=== PATIENT | female | born 1975 | race Caucasian/White ===

== ENCOUNTER → 2018-11-14 16:15 | Outpatient (CLI) | payer OTHER, SELFPAY | PROVIDERS: Referring Provider Obstetrics & Gynecology; Visit Provider Obstetrics & Gynecology | DX: N92.0 Excessive and frequent menstruation with regular cycle (principal) ==

== ENCOUNTER → 2018-11-15 09:07 | Outpatient (CLI) | payer OTHER, SELFPAY ==
--- NOTE | 2018-11-14 16:15 | EMB_PTH ---
PATIENT: COREY RODRIGUEZ LOC: [facility] U#:[id number] AGE/SX: 49/F ROOM: RE11/15/[address]: Dr. Kalen Wise MD : 1975 BED: DIS: SPEC #: [id number] RECD: 11/14/18 17:00 STATUS: NOLBERTO STEFAN #: [id number] KELLY: 11/14/18 16:[address]: Kalen Wise DEPT: SURGICAL PATHOLOGY RECD BY: Rodrigo Navarro Tissues: A - Endometrium, NOS B - Endocervical Procedures: Surgery Specimen Level IV HEADER OPERATION: Endometrial biopsy, polypectomy PRE-OP DIAGNOSIS: Menorrhagia TISSUE SUBMITTED: A - Endometrium, B - Endocervical polyp MICROSCOPIC DIAGNOSIS A. Endometrial biopsy: Proliferative endometrium. B. Endocervical polyp, polypectomy: Inflamed benign endocervical polyp. SJ:josette 11/16/18 MICROSCOPIC DESCRIPTION Slides are reviewed. GROSS DESCRIPTION A - Received in fixative is one container labeled with the patient's name and designated EM biopsy. The specimen consists of multiple fragments of pink hemorrhagic soft tissue that in aggregate measure 1.5 x 1.5 x 0.2 cm. The specimen is totally submitted in one cassette. B - Received in fixative is one container labeled with the patient's name and designated polyp. The specimen consists of multiple fragments of mckinney mucoid tissue that in aggregate measure 1 x 0.5 x 0.1 cm. The specimen is totally submitted in one cassette. / SJ:josette 11/15/18 TC:5 CPT: 02615 x2
== END ==
PROVIDERS: Referring Provider Obstetrics & Gynecology; Visit Provider Obstetrics & Gynecology
DX: N84.1 Polyp of cervix uteri (principal)
CPT/HCPCS: 88305

== ENCOUNTER 2018-12-12 09:58 | Day surgery (SDC) | payer OTHER, SELFPAY ==
[2018-12-05 16:38] LABS: Hematocrit 37.7 % (37-47); Hemoglobin 12.3 g/dL (12.0-15.0); Mean Corp Hgb Conc 32.6 g/dL (32-36); Mean Corpuscular Hgb 29.1 pg (27.0-32.0); Mean Corpuscular Volume 89.3 fL (81-99); Platelet Count 328 K/mm3 (150-450); RBC Distribution Width SD 45.5 fl (35.1-43.9); Red Blood Count 4.22 M/mm3 (4.2-5.4); White Blood Count 9.2 K/mm3 (4.4-11.0)
[2018-12-05 16:49] LABS: Partial Thromboplast Time 30.2 Seconds (24.1-36.2); Prothrombin Time (Protime)PT. 12.6 SECONDS (11.7-14.9)
[2018-12-05 17:01] LABS: Hemoglobin A1c 5.5 % (4.2-6.3)
[2018-12-05 17:09] LABS: Internal QC Validated? YES +Cl - CLEAR BKGD; Pregnancy, Serum, hCG Quali. NEGATIVE Negative
[2018-12-05 19:34] LABS: Anion Gap 9 (5-15); BUN 11 mg/dL (7-18); BUN/Creat Ratio 16.1 RATIO (10-20); Calcium,Total 9.1 mg/dL (8.5-10.1); Chloride 108 mmol/L (98-107); Creatinine, Serum 0.68 mg/dL (0.55-1.02); EST Glomerular Filtration Rate 100 mL/min (>60); Est Glom Filt Rate - Afr Amer 121 mL/min (>60); Glucose 93 mg/dL (74-106); Potassium 3.8 mmol/L (3.5-5.1); Sodium Level 144 mmol/L (136-145); Thyroid Stim Hormone (TSH) 0.58 uIU/mL (0.358-3.74)
--- NOTE | 2018-12-11 16:08 | HP.PCM_ITS ---
History and Physical Date of Admission: 12/12/18 Surgical History and Physical Delphine Farmer, a 43 year old female 1 0 0 0 1, presents for HTA, L/S Bilateral Salpingectomy H/S and D and C on December 12, 2018 at 8:30. -- Irregular menses; Menorrhagia; Desires Permanaent Sterilization -- Delphine presents here today for irregular menses , reports spotting some months with no bleeding then flood gate the next month. Uses no control. Heavy menses which began years ago. Delphine claims it started gradually It is located in the vagina. Delphine characterizes the quality extremely heavy bleeding with menses. Additional comments are: U/S in office essentially normal. MEDICATIONS HISTORY: Patient is also takin. levothyroxine 100 mcg tablet, daily 2. metformin 500 mg tablet, daily 3. omeprazole 10 mg capsule,delayed release, as needed 4. Vitamin D2 50,000 unit capsule, weekly ALLERGIES: NKDA Infections - Chicken pox Illnesses - Prediabetic, Emily Thyroiditis Disease Accidents - None Hospitalizations - Childbirth and surgery Review of Systems: GENERAL - Denies fever, or chills SKIN - Denies skin changes EYES - Denies visual changes EARS - Denies difficulty hearing NOSE - Denies nasal congestion or bleeding MOUTH - Denies sore throat or difficulty swallowing NECK - Denies pain or swelling RESPIRATORY - Denies shortness of breath or wheezing CARDIOVASCULAR - Denies palpitations or chest pain GASTROINTESTINAL - Denies nausea, vomiting, diarrhea, constipation GENITOURINARY - Denies dysuria, frequency of urination, incontinence of urine MUSCULOSKELETAL - Denies joint or muscle pain NEUROLOGICAL - Denies localized numbness or weakness PSYCHIATRIC - Denies depression or anxiety ENDOCRINE - Denies heat or cold intolerance, weight loss or gain HEMATO-IMMUNOLOGIC - Denies excessive bleeding with cuts SOCIAL HISTORY: Alcohol Use - RARELY Smoking - used to smoke but quit Diet - balanced Diet and low fat Lifestyle - high stress lifestyle Exercise - regular Seat Belt Use - always 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 Father: DM I and Heart Disease. MENSTRUAL HISTORY: LMP Known?- Definite Amount/Duration - 3-4 DAYS, Regularity - heavy and Regular, Frequency - every 23 days days, LMP - 11/29/18, Age Onset Menarche - 13 PAST PREGNANCIES: Total Pregnancies - 1; Full Term Pregnancies - 1; Premature - 0; Abortions, Induced - 0; Abortions, Spontaneous - 0; Ectopics - 0; Multiple Births - 0; Living Children - 1 SURGICAL HISTORY: 1. 03/17/1984 T and A PHYSICAL EXAM BP- 120/86 Sitting, Right arm, large cuff Weight- 239.65627 lbs Height- 66 inch BMI:38.66 CONSTITUTIONAL - NAD, well nourished, and well developed SKIN - No rash, lesions, or ulcers HEENT - Normocephalic, PERRLA, EOMI NECK - no nodes, no nuchal rigidity and thyroid normal size and texture LYMPH NODES - Palpation of lymph nodes in neck and groins within normal limits LUNGS - CTA x2 without wheezes, crackles or rales CARDIAC - Regular rate and rhythm without rubs, murmurs, or gallops ABDOMEN - Without hepatosplenomegaly, distention, masses, rebound, or guarding; normal bowel sounds, no hernias EXTREMITIES - No edema or calf tenderness NEUROLOGICAL - Cranial nerves II-XII grossly intact PSYCHIATRIC - A and O to time, place, person, mood and affect External Genital Vagina - non-tender without lesions Urethra/Urethral Meatus - non-tender Bladder - non-tender Vagina - vaginal conn are pink and moist without loss of rugae and no evidence of atropy Cervix - without cervical motion tenderness and has normal size and features without evident lesions and 0.25 cm EC polyp present and removed; cervix high in vagina which would make RAVH ok but LAVH very difficult Uterus - multiparous size 6 cm & wt 75-125 g Adnexa - clear without masses or tenderness ASSESSMENT/PLAN: 1. Menorrhagia, Desires Permanent Sterilization Await EMBx and polyp pathology. Discussed normal u/s today. Discussed options for treatment including OCPs. IUD, or proceeding with endometrial ablation. Desires we proceed with HTA, L/S Bilateral Salpingectomy H/S and D and C and all questions answered. had vasectomy.
[2018-12-12] VITALS (7 sets, daily range): BP systolic 100–117; BP diastolic 53–67; PULSE 64–72; RESP 16–18; TEMP 35.9–36.8; O2SAT 96–100; BMI 38.7
[2018-12-12 10:51] LABS: Internal QC Validated? YES +Cl - CLEAR BKGD; Pregnancy, Urine Negative Negative
[2018-12-12] MEDS: Lactated Ringers 1,000 ML 100 ML IV ×2 (11:06→14:09)
--- NOTE | 2018-12-12 11:35 | FALS_PTH ---
PATIENT: COREY RODRIGUEZ LOC: [facility] – [place] U#:[id number] AGE/SX: 43/F ROOM: RE12/12/[address]: Dr. Kalen Wise MD : 1975 BED: DIS: 12/12/2018 SPEC #: [id number] RECD: 12/12/18 13:57 STATUS: NOLBERTO REQ #: [id number] KELLY: 12/12/18 11:[address]: Kalen Wise DEPT: SURGICAL PATHOLOGY RECD BY: Rodrigo Navarro ENTERED: 12/12/18 14:09 SP TYPE: FALL TUBES OTHR DR: Gloria Gould PA-C Tissues: A - Fallopian tube B - Endometrium, NOS Procedures: Surgery Specimen Level II Surgery Specimen Level IV HEADER OPERATION: Hysteroscopy, hydroablation, D & C, laparoscopic salpingectomy PRE-OP DIAGNOSIS: Menorrhagia, desires permanent sterilization TISSUE SUBMITTED: A - Bilateral fallopian tubes, B - Endometrial curettings MICROSCOPIC DIAGNOSIS A. Bilateral fallopian tubes: Bilateral fallopian tubes including fimbrial ends, no pathologic diagnosis. A minute paratubal cyst. B. Endometrial curettings: Proliferative endometrium. SJ:josette 12/13/18 COMMENT Please make reference to previous specimen ([id number]) endometrial biopsy with diagnosis of proliferative endometrium and endocervical polyp, polypectomy with diagnosis of inflamed benign endocervical polyp. MICROSCOPIC DESCRIPTION Slides are reviewed. GROSS DESCRIPTION A - Received is one container labeled with the patient's name and designated bilateral fallopian tubes. The specimen consists of bilateral fallopian tubes including fimbrial ends measuring 5.5 cm in length and 0.5 cm in diameter and 4 cm in length and 0.5 cm in diameter. Sections do not reveal any mass lesion. The fallopian tubes are not identified as right or left. Sections reveal unremarkable cut surfaces. Also present in the container is a detached piece of soft tissue measuring 0.5 cm in greatest dimension. Ur Coordinator sections are submitted in two cassettes with each cassette containing one fallopian tube. Detached piece of tissue is present in cassette 2. B - Received in fixative is one container labeled with the patient's name and designated endometrial curettings. The specimen consists of multiple irregular fragments of pink-red soft tissue that in aggregate measure 5 x 3 x 0.3 cm. The entire specimen is submitted in two cassettes. / SJ:rg 12/12/18 TC:5 CPT: 92551, 51965 x2
--- NOTE | 2018-12-12 11:43 | PCM.OPRPT ---
Report of Operation Date of Procedure: 12/12/18 Pre-Operative Diagnosis: Menorrhagia, Desires Sterilization Post-Operative Diagnosis: Menorrhagia, Desires Sterilization Surgery/Procedure Performed:: Diagnostic Hysteroscopy, D&C, Hydrothermal Endometrial Ablation, Laparoscopic Bilateral Salpingectomy Description of Surgical Findings:: 8 cm uterus with normal-appearing fallopian tubes and ovaries. 8 cm endometrial cavity without polyps or fibroids present. cement block maker: Cricket Conway Type of Anesthesia:: General - Endotracheal Anesthesiologist: Sidra Morrison Specimen's removed: Endometrial curettings and bilateral fallopian tubes Estimated Blood Loss (mL): Minimal Fluids Replaced: Crystalloid Description of Procedure: Surgeon: Kalen Wise MD, FACOG Indication: This is a 43 year old patient who has been having problems with extremely heavy menses. She also desires permanent sterilization. Conservative measures have not been helpful. Endometrial sampling was benign and pelvic ultrasound showed that ablation may be helpful. Pt has been counseled regarding the risks, benefits and alternatives of this procedure and all questions answered. She understands that only about half of patients will have amenorrhea after this procedure. She also understands the permanent nature of her tubal as well as the failure rate of 1-2%. All questions were answered we consider the patient well-informed. Procedure: Patient taken to the operating room where after induction of general anesthesia the patient was prepped and draped in the usual sterile fashion. Bladder was drained of urine with a catheter. Anterior cervix grasped and a Conn cannula was placed. Attention was turned toward the laparoscopic portion of the procedure. Approximately 20 cc of half percent ropivacaine was injected subumbilically suprapubically and midway between. A 5 mm bladeless trocar was placed subumbilically and intraperitoneal placement confirmed. After CO2 insufflation was complete, a 5 mm bladeless trocar was introduced suprapubically. The above findings were noted. A 5 mm bladeless port was then placed midway between these 2 ports for tubal manipulation. Each fallopian tube was identified to its fimbriated end and an Enseal device was used to divide the mesosalpinx to the level of the uterus on each side. Hemostasis was noted. The peritoneal cavity and upper abdomen were examined and noted to be normal. Photographs were taken. Laparoscopic instruments with as much CO2 gas as possible were removed and incisions were closed with interrupted 4-0 Monocryl suture. Steri-Strips placed across the incision. Attention was turned toward the vaginal portion of the procedure. Cervix was dilated to about 17 Portuguese size. Hysteroscopic hydrothermal ablation (HTA) unit was place in the cervix and the above findings were noted. HTA unit was removed and the uterus was gently curretted removing all contents. An HTA ablation cycle was then carried out at about 90 degrees Centigrade for 10 minutes with virtually no fluid loss during the procedure. After an appropriate cool down the HTA unit was removed with minimal bleeding noted. Patient tolerated procedure well was taken to recovery room in satisfactory condition and sponge instrument and needle counts were all reportedly correct. Estimated blood loss for the case was minimal. Specimens to pathology were endometrial curettings and bilateral fallopian tubes. Grafts/Implants Used: None - Complications None - Admit VTE Documentation VTE Present on Admission: Yes VTE Mechan Device Prophylaxis: SCD's
--- NOTE | 2018-12-12 11:46 | DCINST_ITS ---
Discharge Diet: No Restrictions Discharge Activity: Return to Normal Activity, May Shower, May Take a Tub Bath Call your doctor if you observe: Fever of 101 or Higher, Inability to urinate, Inability to have a bowel movement, Using more than one pad per hour Allergies/Adverse Reactions: Allergies No Known Allergies Allergy (Verified 12/05/18 08:53) Medications to take at Discharge Calcium Citrate/Vitamin D3 [Citracal-Vit D3 200 mg-250 Tab] 1 ea PO DAILY 12/05/18 Cholecalciferol (Vitamin D3) [Vitamin D3] 5,000 unit PO DAILY 12/05/18 Cyanocobalamin (Vitamin B-12) [Vitamin B-12] 500 mcg PO DAILY 12/05/18 Ergocalciferol [Vitamin D] 50,000 unit PO Q7D 12/05/18 Levothyroxine Sodium [Synthroid] 100 mcg PO DAILY 12/05/18 Metformin HCl 500 mg PO DAILY 12/05/18 Omeprazole Magnesium [Prilosec Otc] 20 mg PO PRN PRN 12/05/18 Oxycodone [Oxyir] 5 mg PO Q6H PRN PRN 7 Days #10 tab 12/12/18 The following prescriptions were given: Oxycodone [Oxyir] 5 mg PO Q6H PRN PRN 7 Days #10 tab PRN Reason: Severe Pain (-01/05) Prescription Printed Primary Care Physician: Gloria Gould PA-C [Primary Care Provider] - Test Results: Test results from this visit will be discussed in further detail at your follow- up appointment, if applicable. Please Follow Up With: Kalen Wise MD When: 3 to 4 weeks
[2018-12-12] MEDS: Ropivacaine 0.5% 30 ML Vial (12:35)
== END 2018-12-12 15:06 | disposition home or self-care (01) ==
LOC: SDC 10:00 → AC 10:33
PROVIDERS: Anesthesiology; Family Provider Family Medicine; PCP Family Medicine; Referring Provider Obstetrics & Gynecology; Visit Provider Obstetrics & Gynecology
PROC: 0U5B8ZZ Destruction of Endometrium, Via Natural or Artificial Opening Endoscopic (ICD-10-PCS; CPT 58563; principal; 2018-12-12 11:20)
PROC: (CPT 58661; 2018-12-12 11:20)
DX: N92.0 Excessive and frequent menstruation with regular cycle (principal); N83.8 Other noninflammatory disorders of ovary, fallopian tube and broad ligament; Z30.2 Encounter for sterilization; E06.3 Autoimmune thyroiditis; R73.03 Prediabetes; K21.9 Gastro-esophageal reflux disease without esophagitis; Z79.84 Long term (current) use of oral hypoglycemic drugs; Z79.899 Other long term (current) drug therapy; Z87.891 Personal history of nicotine dependence
CPT/HCPCS: 00840; 58563; 58661; 36415; 80048; 81025; 83036; 84443; 84703; 85027; 85610; 85730; 86850; 86900; 86901; 88302; 88305; J7120; C1760; J2405

== ENCOUNTER → 2022-02-09 | Outpatient (CLI) | payer OTHER, SELFPAY ==
[2022-02-15 13:21] LABS: HPV APTIMA, High Risk Negative (Negative)
== END | disposition home or self-care (01) ==
LOC: LABSPEC 10:27
PROVIDERS: PCP Family Medicine; Visit Provider Student in an Organized Health Care Education/Training Program
DX: Z12.4 Encounter for screening for malignant neoplasm of cervix (principal)
CPT/HCPCS: 87624; 88175; G0145

== ENCOUNTER → 2022-04-07 | Outpatient (CLI) | payer OTHER, SELFPAY ==
--- NOTE | 2022-04-07 12:45 | BRBX_PTH ---
PATIENT: COREY RODRIGUEZ LOC: [facility] U#:[id number] AGE/SX: 46/F ROOM: RE04/07/[address]: Dr. Jw Weaver MD : 1975 BED: DIS: 04/07/2022 SPEC #: [id number] RECD: 04/07/22 14:15 STATUS: NOLBERTO REAnnalise #: [id number] KELLY: 04/07/22 12:[address]: Jw Weaver DEPT: SURGICAL PATHOLOGY RECD BY: Cinda Corrales ENTERED: 04/08/22 07:39 SP TYPE: BREAST BX OTHR DR: Gloria Gould PA-C Tissues: Right breast, NOS Procedures: Surgery Specimen Level IV HEADER OPERATION: Right breast biopsy PRE-OP DIAGNOSIS: Right breast mass TISSUE SUBMITTED: Right breast tissue MICROSCOPIC DIAGNOSIS Right breast, core biopsy: Fragments of benign breast tissue with extensive dense fibrosis. Negative for atypia or malignancy. See comment. 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 Correlation with clinical, radiologic findings and appropriate follow up are necessary. MICROSCOPIC DESCRIPTION Slides are reviewed. GROSS DESCRIPTION Received in fixative is one container labeled with the patient's name and designated right breast. The specimen consists of multiple elongated fragments of mckinney-white soft tissue that in aggregate measure 2 x 0.3 x 0.1 cm. The specimen is totally submitted in one cassette. / AM:josette 04/08/2022 TC:5 CPT: 32220
== END | disposition home or self-care (01) ==
LOC: LABSPEC 14:44
PROVIDERS: PCP Family Medicine; Visit Provider Surgery
DX: N60.31 Fibrosclerosis of right breast (principal)
CPT/HCPCS: 88305

== ENCOUNTER 2022-04-27 10:42 | Day surgery (SDC) | payer OTHER, SELFPAY ==
--- NOTE | 2022-04-27 | IMM_PTH ---
PATIENT: COREY RODRIGUEZ [place] [facility] [place][id number] AGE/SX: 46/F ROOM: RE04/27/[address]: Dr. Jw Weaver MD : 1975 BED: DIS: 04/27/2022 SPEC #: [id number] RECD: 04/29/22 13:16 STATUS: NOLBERTO REAnnalise #: [id number] KELLY: 04/27/22 00:[address]: Jw Weaver DEPT: IMMUNOHISTOCHEMISTRY RECD BY: Lana Patel ENTERED: 04/29/22 13:20 SP TYPE: IMMUNO OTHR DR: Gloria Gould PA-C Tissues: Right breast, NOS Procedures: SMA (add) CALPONIN-1 (add) CD31 (add) CD34 (add) CK5-6 (add) CK8 (add) DESMIN (add) P53 (add) WA (add) Vimentin (add) SMM (add) FACTOR VIII (add) Pankeratin (add) P40 (add) ER (initial) PHYSICIAN & [address] [address] SPECIMEN INFORMATION: Tissue Source: Right breast mass Clinical Info: Right breast mass, pseudoangiomatous stromal hyperplasia Specimen Number: [id number] #3 CPT code: 59492, 30805 x14 METHODOLOGY: Deparaffinized sections of prefer/formalin-fixed tissue or PAP/DQ stained slides are incubated with monoclonal/polyclonal antibodies/oligonucleotide probes. Localization is made via biotin free immunoperoxidase method. Appropriate controls are performed and reacted as expected. Results on target cell population are indicated in the following table: RESULTS: ANTIBODY / CLONE RESULT Block 3 ER (6F11) positive, glands WA (1E2) positive, glands AE1-3 (AE1/AE3/PCK26) negative CK8 (37dwkcF40) negative Vimentin (V9) positive Calponin-1 (NZ713X) positive, basal glands CD31 (SHAUN/70A) negative Factor VIII (R Ag) negative CD34 (QBEnd-10) positive Actin (1A4) positive Myosin (simms1) positive, focal Desmin (CE-R-11) negative CK5-6 (D5 & 1684) negative P40 (BC28) negative P53 (DO-7) negative These tests were developed and their performance characteristics determined by [facility]. They may not have been cleared or approved by the U.S. Food and Drug Administration. The FDA has determined that such clearance or approval is not necessary. The above immunohistochemical/dualISH markers are ordered and reviewed by the Pathologist. INTERPRETATION: Right breast, partial mastectomy: Consistent with pseudoangiomatous stromal hyperplasia. AM:josette 04/30/2022
--- NOTE | 2022-04-27 11:09 | PCM.HP.BLA ---
History and Physical Date of Admission: 04/27/22 Intake Vital Signs ? 04/13/2309:06 Height 5 ft 6 in BP 138/83 H Blood Pressure Location Rt brachial Position Sitting Respiration 17 Pulse 71 Pulse Source Monitor Temp 97.4 F L Temp Source Temporal Pulse Oximetry (%) 98 Oxygen Delivery Method room air Intake Visit Reasons:?DISCUSS SURGERY Chief Complaint: discuss surgery Is patient in pain?: No Allergies No Known Allergies Allergy (Verified 04/13/22 10:05) Medications cholecalciferol (vitamin D3) 125 mcg (5,000 unit) capsule 5,000 unit PO DAILY 12/05/18 [History Confirmed 04/13/22] levothyroxine 100 mcg tablet 100 mcg PO DAILY 12/05/18 [History Confirmed 04/13/22] metformin 500 mg tablet 1,500 mg PO BID 04/07/22 [History Confirmed 04/13/22] oxybutynin chloride 10 mg tablet,extended release 24 hr 10 mg PO DAILY 04/07/22 [History Confirmed 04/13/22] PFSH Medical History? Diabetes Hypothyroid Surgical History? S/P tonsillectomy Status post endometrial ablation Family History? Grandfather Heart disease Cancer ?? ? skin CVA (cerebral vascular accident)Mother Hypertension CAD (coronary artery disease)Father Diabetes Social History? Smoking Status:? Former smoker alcohol intake:? current alcohol intake frequency: a few times a month HPI HPI HPI: Patient is a 46-year-old female here to follow-up after breast biopsy. ROS General General: No weight change, appetite, fatigue, colon cancer, breast cancer or weakness HEENT HEENT: No difficulty swallowing, eye injury, eye surgery, swollen glands or hoarseness Endo Endocrine: Yes thyroid disease; No diabetes mellitus, thyroid cancer, Hair loss, heat intolerance or cold intolerance Skin Skin: No rash or changing moles Breast Breast: No left breast lump, right breast lump, nipple discharge, breast pain, abnormal mammogram, abnormal US or breast enlargement Musc Musculoskeletal: No back problems, arthritis, rheumatoid arthritis, gout or joint pain Cardio Cardiovascular: No murmur, pacemaker, heart disease, atrial fibrillation, high blood pressure, heart attack, heart stent, palpitations, shortness of breat with exertion or chest pain Psych Psychiatric: No depression, anxiety or hearing voices Resp Respiratory: No shortness of breath, No sleep apnea, No cough, No COPD, No asthma, No emphysema and No wheezing Gastro Gastrointestinal: No abdominal pain, No nausea or vomiting, No diarrhea, No constipation, No blood in stool, No acid reflux, No hemorrhoids, No ulcers, No gallbladder problem and No black,tarry stools Torsten Hematologic: No blood thinners, No blood disorders, No bleeding, No anemia and No blood clots Neuro Neurologic: No system reviewed and no additional complaints, except as documented, No as per HPI, No abnormal gait, No abnormal hearing, No abnormal movements, No abnormal speech, No behavioral changes, No burning sensations, No confusion, No convulsions, No disequilibrium, No dizziness, No localized weakness, No frequent falls, No headache(s), No lack of coordination, No loss of vision, No memory loss, No numbness, No other visual disturbances, No radicular pain, No restless legs, No sensory deficit, No syncope, No tingling, No tremor(s), No weakness and No other Exam Const General: cooperative Orientation: alert and oriented x3 [facility] Head: normal to inspection Neck Neck: normal visual inspection and full ROM Chest Chest palpation & inspection: normal inspection of the chest Resp Effort & Inspection: normal respiratory effort Auscultation: clear to auscultation bilaterally Cardio Rate: regular rate Rhythm: regular rhythm GI Inspection: non-distended Palpation: soft and nontender Skin General: no rashes or lesions noted Neuro General: patient alert and patient oriented x3 Extrem General: full ROM Psych Appearance: grossly normal Mental Status: mental status grossly normal Assessment and Plan Assessment and Plan (1) Mass of right breast: ?Status:?Acute ?Qualifiers: ?Breast mass location:?upper outer quadrant? Qualified Code(s):?N63.11 - Unspecified lump in the right breast, upper outer quadrant (2) Pseudoangiomatous stromal hyperplasia of breast: ?Status:?Acute Plan Patient had biopsy of the right breast and revealed that this mass was PASH.? After discussing with several other surgeons a recommendation was made to remove this as it is 5 cm and possibly growing larger.? I discussed partial mastectomy with the patient in detail.? I also discussed the possibility of having to perform a completion mastectomy if this came back as angiosarcoma.? I also discussed the procedure in detail with the risks of bleeding, infection, distortion of the breast, hematoma or seroma formation.? Patient understands the risks and is willing to proceed. Jw Weaver MD Pager: [facility] [address] [place] [address] [address] [place] [address] Office: I have examined the patient and the H&P has been reviewed. There are no clinical changes since date of exam.
[2022-04-27 11:31] VITALS: BP 137/80; PULSE 76; RESP 16; TEMP 36.5; O2SAT 100; BMI 34.3
[2022-04-27] MEDS: Lactated Ringers 1,000 ML 15 ML IV ×2 (11:46→13:09)
[2022-04-27 11:50] LABS: Bedside Glucose 103 mg/dL (74-106)
[2022-04-27] MEDS: Cefazolin 2 GM in 0.9% Normal Saline 100 ML IV (11:59)
[2022-04-27 12:10] LABS: Hemoglobin A1c 5.2 % (3.8-5.6)
--- NOTE | 2022-04-27 12:10 | BR_PTH ---
PATIENT: COREY RODRIGUEZ LOC: [facility] – [place] U#:[id number] AGE/SX: 46/F ROOM: RE04/27/[address]: Dr. Jw Weaver MD : 1975 BED: DIS: 04/27/2022 SPEC #: [id number] RECD: 04/27/22 12:37 STATUS: NOLBERTO STEFAN #: [id number] KELLY: 04/27/22 12:[address]: Jw Weaver DEPT: SURGICAL PATHOLOGY RECD BY: Cinda Corrales ENTERED: 04/27/22 13:05 SP TYPE: MAMOPLASTY OTHR DR: Gloria Gould PA-C Tissues: Right breast, NOS Procedures: Surgery Specimen Level IV HEADER OPERATION: Partial mastectomy with ultrasound-guided localization PRE-OP DIAGNOSIS: Mass of right breast, pseudoangiomatous stromal hyperplasia of breast TISSUE SUBMITTED: Right breast mass (short stitch ? superior, long stitch ? lateral) MICROSCOPIC DIAGNOSIS Right breast, partial mastectomy: Consistent with pseudoangiomatous stromal hyperplasia. Adenosis. Focal intraductal hyperplasia without atypia. Fibrocystic change. Banal microcalcifications. No evidence of malignancy. AM:josette 04/29/2022 COMMENT Immunohistochemistry ([id number]) supports the above diagnosis. Reference is made to the patient's previous right breast, core biopsy ([id number]) in which dense fibrosis was identified. Case has been reviewed in consultation with Dr. Mallory who concurs with the above diagnosis. IDC:SJ MICROSCOPIC DESCRIPTION Slides are reviewed. GROSS DESCRIPTION Received in fixative is one container labeled with the patient's name and designated right breast mass. The specimen consists of a piece of fibroadipose tissue with needle localization measuring 5.5 x 5.5 x 4 cm. The specimen is oriented as follows: short stitch - superior, long stitch - lateral. The specimen appears to be partly disrupted. The specimen is inked as follows: anterior - yellow, posterior - black, superior - blue, inferior - green, medial - red and lateral - orange. Sections reveal a vague, mckinney, solid mass-like area measuring 4 x 4 x 2.7 cm. This lesion is close to superior, inferior, posterior and lateral?margins of the specimen. Policy Service Coordinator sections are submitted in 12 cassettes as follows: 1??perpendicular inferior, posterior margin, 2 - perpendicular medial, lateral margin, 3-10 - tumor including perpendicular superior, inferior margin, 11 & 12 - shared services representative sections from the other areas. / SJ:josette 04/28/2022 TC:5 CPT: 73946
[2022-04-27] MEDS: Bupiv/Epi 0.5% Mpf 30 ML Vial (12:25)
--- NOTE | 2022-04-27 12:32 | BI_ITS ---
SURGICAL BREAST SPECIMEN RADIOGRAPH CLINICAL: Document presence of tissue clip marker in biopsy specimen. FINDINGS: Specimen shows presence of tissue clip marker. Electronically Signed: Nilesh Nix MD at 12:49 EST , BI/Breast Biopsy Specimen IMPRESSION: undefined
[2022-04-27 12:47] VITALS: BP 125/73; BP 137/80; PULSE 91; RESP 16; TEMP 36.4; O2SAT 100
--- NOTE | 2022-04-27 12:57 | PCM.OPRPT ---
Report of Operation Date of Procedure: 04/27/22 Pre-Operative Diagnosis: Right breast mass Post-Operative Diagnosis: Same Surgery/Procedure Performed:: 1. Ultrasound-guided wire localization 2. Right partial mastectomy Description of Procedure: Patient was brought back to the operating room and general anesthesia was induced. The right breast was prepped and draped in usual sterile fashion ultrasound was used to localize the mass in the 10 o'clock position. Skin was prepped again and the wire was placed into the mass under ultrasound guidance. Next the breast was prepped and draped once more and a curvilinear incision was marked superior and lateral to the nipple. It was injected with local anesthetic and then a skin incision was made with a scalpel. Electrocautery was used to maintain hemostasis. The wire was followed to the mass and the mass was excised using electrocautery. It was marked and then sent for x-ray which confirmed that the clip and wire were both within the mass. The cavity was irrigated and suctioned dry and inspected for hemostasis and hemostasis obtained using electrocautery. The skin was closed with interrupted 3-0 Vicryl suture in a running 4-0 Monocryl suture. Dermabond was applied. Patient tolerated the procedure well. Admit VTE Documentation VTE Mechan Device Prophylaxis: SCD's
[2022-04-27 13:00] VITALS: BP 124/69; BP 137/80; PULSE 93; RESP 16; O2SAT 95
--- NOTE | 2022-04-27 13:02 | DCINST_ITS ---
Discharge Instructions Procedure Breast Surgery Diet Discharge Diet: No restrictions Activity Discharge Activity: May Not Drive (for 2-3 days or while taking narcotic pain medications.) and May Shower (tomorrow) May shower in (days): 1 Lifting Restrictions: 20 lbs for 1 week Dressing / Incision Call your doctor if your incision/area has: Continuous Slow Oozing, Sudden Increased Bleeding, Increased Pain/ Swelling, Increased Redness, Foul Smelling Discharge and Swelling at the incision site Call your doctor if you observe: Fever of 101 or Higher Suture Line Care: Avoid Pulling/Pushing and Avoid Pinching/Bending Cleanse incision/area with: Soap & Water Additional Dressing/Incision Instructions:: Wear a tight fitting supportive bra for the next week Follow Up Care Please Follow Up With: Jw Weaver MD When: Please call to schedule 2 week follow up appointment. [phone] Test Results: Test results from this visit will be discussed in further detail at your follow- up appointment, if applicable. Discharge Plan Admission Attending Provider: Jw Weaver Primary Care Provider: Gloria Gould Discharge Orders/Prescriptions Prescriptions: New hydrocodone-acetaminophen 5-325 mg tablet 1 tab PO Q4H PRN (Reason: pain) 5 Days Qty: 20 0RF No Action oxybutynin chloride 10 mg tablet extended release 24hr 10 mg PO QHS levothyroxine 100 MCG tablet 100 mcg PO DAILY metformin 500 mg tablet 500 mg PO DAILY metformin 500 mg Tablet 1,000 mg PO QHS Multivitamin, Mineral Formula Tablet 1 tab PO DAILY Vitamin [id number] Tablet 1 tab PO DAILY cholecalciferol (vitamin D3) [Vitamin D3] 50 mcg (2,000 unit) Tablet 50 mcg PO DAILY Probiotic 3 billion cell Capsule 3,000 mmu cells PO MO Rx Instructions: administer with a meal Referrals / Follow Up: Gloria Gould PA-C [Primary Care Provider] - Disposition Disposition (needs filled in before D/C Order can be placed): Home, Self Care
[2022-04-27 13:06] LABS: Anion Gap 8 (5-15); BUN 7 mg/dL (7-18); BUN/Creat Ratio 13.8 RATIO (10-20); Calcium,Total 8.9 mg/dL (8.5-10.1); Chloride 110 mmol/L (98-107); Creatinine, Serum 0.51 mg/dL (0.55-1.02); EST Glomerular Filtration Rate 139 mL/min (>60); Est Glom Filt Rate - Afr Amer 168 mL/min (>60); Estimated Creatinine Clearance 130.41 ml/min; Glucose 100 mg/dL (74-106); Potassium 3.7 mmol/L (3.5-5.1); Sodium Level 141 mmol/L (136-145)
[2022-04-27 13:15] VITALS: BP 122/81; BP 137/80; PULSE 78; RESP 16; O2SAT 97
[2022-04-27 13:20] LABS: Bedside Glucose 98 mg/dL (74-106)
[2022-04-27 13:36] VITALS: BP 124/76; BP 137/80; PULSE 88; RESP 16; TEMP 36.6; O2SAT 94
[2022-04-27 14:46] VITALS: BP 125/88; BP 137/80; PULSE 68; RESP 16; TEMP 36.8; O2SAT 100
== END 2022-04-27 14:57 | disposition home or self-care (01) ==
LOC: SDC 10:45 → AC 10:46
PROVIDERS: Anesthesiology; PCP Family Medicine; Referring Provider Surgery; Visit Provider Surgery
PROC: (CPT 19301; principal; 2022-04-27 11:55)
DX: N60.81 Other benign mammary dysplasias of right breast (principal); E11.9 Type 2 diabetes mellitus without complications; N60.11 Diffuse cystic mastopathy of right breast; N60.21 Fibroadenosis of right breast; E03.9 Hypothyroidism, unspecified; Z79.84 Long term (current) use of oral hypoglycemic drugs; Z79.899 Other long term (current) drug therapy; Z87.891 Personal history of nicotine dependence
CPT/HCPCS: 19301; 00404; 76098; 80048; 82962; 83036; 84443; 88305; 88341; 88342; J7120; J2405

== ENCOUNTER → 2022-11-09 | Outpatient (CLI) | payer OTHER, SELFPAY ==
--- NOTE | 2022-11-09 08:00 | US_ITS ---
STUDY: ULTRASOUND BREAST - RIGHT REASON FOR EXAM: Female, 47 years old. Status post right lumpectomy. TECHNIQUE: Axial and longitudinal images of the RIGHT breast were performed with a high resolution ultrasound transducer. # OF IMAGES: 11 COMPARISON: None. FINDINGS: RIGHT Breast: Imaging of the upper outer quadrant of the right breast at the site of the scar was performed. There is evidence of a 5.9 mm x 7.1 mm hypoechoic density with posterior shadowing. This most likely represents a postoperative scar. IMPRESSION: Imaging of the upper outer quadrant of the right breast demonstrates an area of prior lumpectomy and scarring. ASSESSMENT CATEGORY: BIRADS Category 2: Benign. A letter regarding these results will be sent to the patient by the facility within 30 days. Electronically Signed: Nilesh Nix MD at 15:31 EDT , STUDY: ULTRASOUND BREAST - LEFT REASON FOR EXAM: Female, 47 years old. Left breast cyst. TECHNIQUE: Axial and longitudinal images of the LEFT breast were performed with a high resolution ultrasound transducer. # OF IMAGES: 11 COMPARISON: None. FINDINGS: LEFT Breast: There is a 1.5 cm x 1.3 cm x 1.2 cm cyst at the 1:00 position of the breast at 7 cm from the nipple. US/Breast Limited Unilateral IMPRESSION: 1.5 cm x 1.3 Jmaes by 1.2 cm cyst at the 1:00 position of the breast at 7 cm from the nipple. ASSESSMENT CATEGORY: BIRADS Category 2: Benign. A letter regarding these results will be sent to the patient by the facility within 30 days. Electronically Signed: Nilesh Nix MD at 15:32 EDT ,
== END | disposition home or self-care (01) ==
PROVIDERS: PCP Family Medicine; Referring Provider Surgery; Visit Provider Surgery
DX: N64.89 Other specified disorders of breast (principal); N63.10 Unspecified lump in the right breast, unspecified quadrant
CPT/HCPCS: 76642